=== PATIENT | male | born 1950 | race African-American/Black ===

== ENCOUNTER 2019-01-11 12:22 | Outpatient (RCR) | payer MEDICARE ==
[~2019-01-11 12:22] MED LIST: AMLODIPINE BESY10 MG PO; BISAC-EVAC10 MG PR; BISACODYL5 MG PO; CARVEDILOL3.125 MG PO; CATAPRES0.1 MG PO; FLEET ENEMA133 ML PR; FUROSEMIDE40 MG PO; GUAIFENESI100 MG/5 M PO; HUMALOG100 UNITS/ INJ; KLOR-CON M2020 MEQ PO; LISINOPRIL10 MG PO; MAALOX PO; MILK OF MA2400 MG/10 PO; PANTOPRAZOLE SO40 MG PO; POLYETHYLENE GL17 GM PO; TRAZODONE HCL50 MG PO; TYLENOL325 MG PO; ZINC OXIDE30 GM TOP; ZOFRAN ODT4 MG PO
[2019-01-11] MEDS ORDERED: LIDOCAINE/PRILOCAINE 2.5-2.5% KIT ONE (13:13)
[2019-01-11] MEDS ORDERED: MINERAL OIL/PETROLAT/GLYCERI 6OZ BTL ONE (13:13)
== END 2019-02-08 ==
LOC: WCC 12:22
PROVIDERS: ATTEND Family Medicine Adult Medicine
DX: E11.8 Type 2 diabetes mellitus with unspecified complications (principal); S81.801A Unspecified open wound, right lower leg, initial encounter; R60.9 Edema, unspecified; I87.2 Venous insufficiency (chronic) (peripheral); I70.201 Unspecified atherosclerosis of native arteries of extremities, right leg; G99.0 Autonomic neuropathy in diseases classified elsewhere; I10 Essential (primary) hypertension; E66.8 Other obesity; W45.8XXA Other foreign body or object entering through skin, initial encounter; Z89.612 Acquired absence of left leg above knee

== ENCOUNTER → 2019-01-18 | Outpatient (CLI) | payer MEDICARE | LOC: CARD 09:56 | PROVIDERS: ATTEND Family Medicine Adult Medicine | DX: I70.201 Unspecified atherosclerosis of native arteries of extremities, right leg (principal); I87.2 Venous insufficiency (chronic) (peripheral) | CPT/HCPCS: 93922; 93926; 93971 ==

== ENCOUNTER → 2019-09-20 | Outpatient (CLI) | payer MEDICARE ==
[~2019-09-20] MED LIST changes: +GADOBENATE DIMEGLUMINE 0 ML IV ONE
[2019-09-20 09:52] LABS: BLOOD UREA NITROGEN 17 mg/dL (7-26); BUN/CREATININE RATIO 16 (6-25); CREATININE, SERUM 1.09 mg/dL (0.72-1.25); EST GLOMERULAR FILTRATION RATE > 60 ML/MIN (60-)
== END ==
LOC: MRI 08:51
PROVIDERS: ATTEND Optometrist
DX: H47.291 Other optic atrophy, right eye (principal)
CPT/HCPCS: 36415; 82565; 84520

== ENCOUNTER 2021-06-03 11:11 | Inpatient (IN) | payer MEDICARE ==
[~2021-06-03] VITALS: Ht 185.4 cm; Wt 170.1 kg
[~2021-06-03 11:11] MED LIST changes: -GADOBENATE DIMEGLUMINE 0 ML IV ONE
[2021-06-03 12:37] LABS: ABG PCO2 59 mmHg (35-45); ABG PH 7.39 (7.35-7.45); ABG PO2 107 mmHg (80-105)
[2021-06-03 12:38] LABS: ABG HCO3 35 mmol/L (22-26); ABG TCO2 37
[2021-06-03 12:58] LABS: CLARITY,URINE CLEAR (CLEAR); COLOR,URINE YELLOW (YELLOW); LEUKOCYTE ESTERASE ,URINE NEGATIVE (NEGATIVE); NITRITE,URINE NEGATIVE (NEGATIVE); PROTEIN,URINE DIPSTICK 2+ (NEGATIVE)
[2021-06-03 12:59] LABS: KETONES,URINE 1+ (NEGATIVE); URINE UROBILINOGEN 0.2 mg/dL (0.2 - 1)
[2021-06-03 13:00] LABS: WBC,URINE (MAN) 0-5 /HPF (0-5)
[2021-06-03 13:01] LABS: MUCUS,URINE FEW (RARE)
[2021-06-03 13:12] LABS: EOSINOPHILS # (AUTO) 0.1 (0.0-0.4); EOSINOPHILS % 1.8 % (0.0-6.0); HEMATOCRIT 45.7 % (38.2-49.6); HEMOGLOBIN 13.4 g/dL (14.0-18.0); LYMPHOCYTES # (AUTO) 1.2 (1.0-3.2); LYMPHOCYTES % 24.6 % (18.0-39.1); MEAN CORPUSCULAR HEMOGLOBIN 24.5 pg (28-32); MEAN CORPUSCULAR HGB CONC 29.3 g/dL (31-35); MEAN CORPUSCULAR VOLUME 83.5 fL (81-99); MONOCYTES # (AUTO) 0.7 (0.2-0.8); MONOCYTES % 15.2 % (4.4-11.3); NEUTROPHILS # (AUTO) 2.8 (2.1-6.9); NEUTROPHILS % 57.8 % (38.7-80.0); PLATELET COUNT 141 x10e3/uL (140-360); RED BLOOD COUNT 5.47 x10e6/uL (4.3-5.7); RED CELL DISTRIBUTION WIDTH 19.8 % (11.7-14.4)
[2021-06-03 13:34] LABS: ALANINE AMINOTRANSFERASE 15 IU/L (0-55); ALBUMIN 2.9 g/dL (3.5-5.0); ALBUMIN/GLOBULIN RATIO 0.7 (0.8-2.0); ALKALINE PHOSPHATASE 63 IU/L (40-150); ANION GAP 11.3 mmol/L (8-16); BLOOD UREA NITROGEN 13 mg/dL (7-26); BUN/CREATININE RATIO 15 (6-25); CALCIUM 8.2 mg/dL (8.4-10.2); CARBON DIOXIDE 31 mmol/L (22-29); CHLORIDE 106 mmol/L (98-107); CREATINE KINASE 169 IU/L (30-200); CREATININE, SERUM 0.85 mg/dL (0.72-1.25); EST GLOMERULAR FILTRATION RATE 108 ML/MIN (60-); GLUCOSE 114 mg/dL (74-118); POTASSIUM 3.3 mmol/L (3.5-5.1); SODIUM 145 mmol/L (136-145)
[2021-06-03] MEDS ORDERED: POTASSIUM CHLORIDE 20MEQ/100ML 100 ML IV ONE (15:00)
[2021-06-03] MEDS ORDERED: FUROSEMIDE INJ 10 MG/ML 4 ML VIAL IV ONE (15:00)
[2021-06-03 16:52] LABS: ABG HCO3 36 mmol/L (22-26); ABG PCO2 63 mmHg (35-45); ABG PH 7.37 (7.35-7.45); ABG PO2 168 mmHg (80-105); ABG TCO2 38
[2021-06-03 16:54] LABS: ABG HCO3 36 mmol/L (22-26); ABG PCO2 63 mmHg (35-45); ABG PH 7.37 (7.35-7.45); ABG PO2 168 mmHg (80-105); ABG TCO2 38
[2021-06-03] MEDS ORDERED: DEXTROSE 50% SYRINGE 50 ML IV PRN (21:45)
[2021-06-03] MEDS ORDERED: POLYETHYLENE GLYCOL 3350 17 GM PACK PO SCH (21:45)
[2021-06-04] MEDS: CEFTRIAXONE 1 GM in SODIUM CHLORIDE 0.9% 50ML 50 ML IV SCH ×2 (00:53→21:00)
[2021-06-04] MEDS: HYDRALAZINE HCL 20 MG/ML VIAL IV PRN (03:22)
[2021-06-04 06:09] LABS: ABG HCO3 36 mmol/L (22-26); ABG PCO2 56 mmHg (35-45); ABG PO2 89 mmHg (80-105); ABG TCO2 32
[2021-06-04 06:11] LABS: ABG PH 7.41 (7.35-7.45)
[2021-06-04 07:09] LABS: EOSINOPHILS # (AUTO) 0.1 (0.0-0.4); EOSINOPHILS % 1.4 % (0.0-6.0); HEMATOCRIT 46.7 % (38.2-49.6); HEMOGLOBIN 14.1 g/dL (14.0-18.0); LYMPHOCYTES # (AUTO) 1.3 (1.0-3.2); LYMPHOCYTES % 16.3 % (18.0-39.1); MEAN CORPUSCULAR HEMOGLOBIN 24.7 pg (28-32); MEAN CORPUSCULAR HGB CONC 30.2 g/dL (31-35); MEAN CORPUSCULAR VOLUME 81.8 fL (81-99); MONOCYTES # (AUTO) 1.1 (0.2-0.8); MONOCYTES % 13.6 % (4.4-11.3); NEUTROPHILS # (AUTO) 5.3 (2.1-6.9); NEUTROPHILS % 68.3 % (38.7-80.0); PLATELET COUNT 166 x10e3/uL (140-360); RED BLOOD COUNT 5.71 x10e6/uL (4.3-5.7); RED CELL DISTRIBUTION WIDTH 19.9 % (11.7-14.4)
[2021-06-04 07:20] LABS: ALBUMIN 3.4 g/dL (3.5-5.0); ALBUMIN/GLOBULIN RATIO 0.8 (0.8-2.0); ANION GAP 16.1 mmol/L (8-16); CREATININE, SERUM 1.02 mg/dL (0.72-1.25); MAGNESIUM 1.7 MG/DL (1.3-2.1); POTASSIUM 3.1 mmol/L (3.5-5.1)
[2021-06-04] MEDS: INSULIN LISPRO 100 UNIT/1 ML 3ML VIAL SQ SCH ×4 (07:30→21:00)
[2021-06-04] MEDS ORDERED: POTASSIUM CHLORIDE 10MEQ EA PO NR ×2 (08:15→11:00)
[2021-06-04] MEDS ORDERED: MAGNESIUM OXIDE 400 MG TAB PO NR (08:15)
[2021-06-04] MEDS: PANTOPRAZOLE SOD 40 MG TABEC PO SCH (08:40)
[2021-06-04] MEDS: LISINOPRIL 10 MG TAB PO SCH (08:40)
[2021-06-04] MEDS: AMLODIPINE BESYLATE 10 MG TAB PO SCH (08:40)
[2021-06-04] MEDS: FUROSEMIDE INJ 10 MG/ML 4 ML VIAL IV SCH (08:40)
[2021-06-04] MEDS: CARVEDILOL 3.125 MG TAB PO SCH ×2 (08:40→17:00)
[2021-06-04] MEDS ORDERED: HALOPERIDOL LACTATE 5 MG/ML VIAL IV NR (10:15)
[2021-06-04 13:38] LABS: ABG HCO3 34 mmol/L (22-26); ABG PCO2 50 mmHg (35-45); ABG PH 7.44 (7.35-7.45); ABG PO2 154 mmHg (80-105); ABG TCO2 35
[2021-06-04 14:05] LABS: CHOL/HDL RATIO 4.4 (3.9-4.7); THYROID STIMULATING HORMONE 1.13 uIU/mL (0.350-4.940)
[2021-06-04] MEDS ORDERED: HALOPERIDOL LACTATE 5 MG/ML VIAL IM PRN (18:45)
[2021-06-04] MEDS ORDERED: HALOPERIDOL LACTATE 5 MG/ML VIAL IV STA (18:45)
[2021-06-04] MEDS: ENOXAPARIN SOD INJ 40 MG/0.4 ML SYR SC SCH (18:53)
[2021-06-04] MEDS ORDERED: OLANZAPINE 10 MG VIAL IM PRN (19:15)
[2021-06-05] MEDS: FUROSEMIDE INJ 10 MG/ML 4 ML VIAL IV SCH ×3 (00:31→20:01)
[2021-06-05] MEDS: INSULIN LISPRO 100 UNIT/1 ML 3ML VIAL SQ SCH ×4 (00:33→16:30)
[2021-06-05] MEDS: CARVEDILOL 3.125 MG TAB PO SCH ×2 (08:31→17:07)
[2021-06-05] MEDS: AMLODIPINE BESYLATE 10 MG TAB PO SCH (08:32)
[2021-06-05] MEDS: PANTOPRAZOLE SOD 40 MG TABEC PO SCH (08:32)
[2021-06-05] MEDS: LISINOPRIL 10 MG TAB PO SCH (08:32)
[2021-06-05] MEDS: ASPIRIN 81 MG ENTERIC COATED PO SCH (08:32)
[2021-06-05 08:37] LABS: EOSINOPHILS # (AUTO) 0.1 (0.0-0.4); EOSINOPHILS % 1.2 % (0.0-6.0); HEMOGLOBIN 13.4 g/dL (14.0-18.0); LYMPHOCYTES # (AUTO) 1.2 (1.0-3.2); LYMPHOCYTES % 20.9 % (18.0-39.1); MEAN CORPUSCULAR HEMOGLOBIN 24.5 pg (28-32); MEAN CORPUSCULAR HGB CONC 29.8 g/dL (31-35); MEAN CORPUSCULAR VOLUME 82.4 fL (81-99); MONOCYTES # (AUTO) 0.9 (0.2-0.8); MONOCYTES % 15.8 % (4.4-11.3); NEUTROPHILS # (AUTO) 3.6 (2.1-6.9); NEUTROPHILS % 61.9 % (38.7-80.0); PLATELET COUNT 158 x10e3/uL (140-360); RED BLOOD COUNT 5.46 x10e6/uL (4.3-5.7)
[2021-06-05 09:03] LABS: ALBUMIN 3.2 g/dL (3.5-5.0); CALCIUM 8.8 mg/dL (8.4-10.2); CREATININE, SERUM 0.97 mg/dL (0.72-1.25); MAGNESIUM 1.8 MG/DL (1.3-2.1)
[2021-06-05] MEDS ORDERED: POTASSIUM CHLORIDE 20 MEQ TAB CR PO ONE (12:30)
[2021-06-05 14:41] LABS: ANION GAP 18.2 mmol/L (8-16); CALCIUM 8.7 mg/dL (8.4-10.2); CREATININE, SERUM 0.95 mg/dL (0.72-1.25); POTASSIUM 3.2 mmol/L (3.5-5.1)
[2021-06-05] MEDS: ENOXAPARIN SOD INJ 40 MG/0.4 ML SYR SC SCH (17:07)
[2021-06-05 18:04] VITALS: BP 157/68
[2021-06-05 18:25] VITALS: BP 157/68
[2021-06-05 18:28] VITALS: BP 157/68
[2021-06-05] MEDS ORDERED: NEURONTIN100 MG PO (18:56)
[2021-06-05] MEDS ORDERED: DOCUSATE SODIU100 MG PO (18:56)
[2021-06-05] MEDS ORDERED: ISOSORBIDE MONO30 MG PO (18:56)
[2021-06-05] MEDS ORDERED: SENOKOT-S TABL1 EACH PO (18:56)
[2021-06-05] MEDS ORDERED: HYDRALAZINE HCL10 MG PO (18:56)
[2021-06-05] MEDS ORDERED: QUETIAPINE FUM100 MG PO ×2 (18:56)
[2021-06-05] MEDS ORDERED: PANTOPRAZOLE SO40 MG PO (18:56)
[2021-06-05] MEDS ORDERED: ALPRAZOLAM0.5 MG PO (18:56)
[2021-06-05] MEDS ORDERED: GLIPIZIDE5 MG PO (18:56)
[2021-06-05] MEDS ORDERED: DEPAKOTE500 MG PO (18:56)
[2021-06-05] MEDS ORDERED: METOPROLOL SUCC50 MG PO (18:56)
[2021-06-05] MEDS ORDERED: ASPIRIN81 MG PO (18:56)
[2021-06-05] MEDS ORDERED: DEXTROSE 50% SYRINGE 50 ML IV PRN (19:00)
[2021-06-05 20:00] VITALS: BP 160/70
[2021-06-05] MEDS: CEFTRIAXONE 1 GM in SODIUM CHLORIDE 0.9% 50ML 50 ML IV SCH (20:01)
[2021-06-05] MEDS ORDERED: POTASSIUM CHLORIDE 10MEQ EA PO ONE (20:45)
[2021-06-05 21:00] VITALS: BP 157/68
[2021-06-05] MEDS: INSULIN REGULAR, HUMAN 100 UNIT/1 ML SQ SCH (21:00)
[2021-06-06] VITALS (8 sets, daily range): BP systolic 132–167; BP diastolic 62–100
[2021-06-06 05:47] LABS: EOSINOPHILS # (AUTO) 0.1 (0.0-0.4); EOSINOPHILS % 2.1 % (0.0-6.0); HEMATOCRIT 43.5 % (38.2-49.6); HEMOGLOBIN 13.3 g/dL (14.0-18.0); LYMPHOCYTES # (AUTO) 1.3 (1.0-3.2); LYMPHOCYTES % 22.3 % (18.0-39.1); MEAN CORPUSCULAR HEMOGLOBIN 24.9 pg (28-32); MEAN CORPUSCULAR HGB CONC 30.6 g/dL (31-35); MEAN CORPUSCULAR VOLUME 81.5 fL (81-99); MONOCYTES # (AUTO) 0.9 (0.2-0.8); MONOCYTES % 15.8 % (4.4-11.3); NEUTROPHILS # (AUTO) 3.4 (2.1-6.9); NEUTROPHILS % 59.6 % (38.7-80.0); PLATELET COUNT 163 x10e3/uL (140-360); RED BLOOD COUNT 5.34 x10e6/uL (4.3-5.7); RED CELL DISTRIBUTION WIDTH 19.6 % (11.7-14.4)
[2021-06-06 06:35] LABS: ALBUMIN/GLOBULIN RATIO 0.8 (0.8-2.0); ANION GAP 16.2 mmol/L (8-16); CALCIUM 8.6 mg/dL (8.4-10.2); CREATININE, SERUM 1.05 mg/dL (0.72-1.25); MAGNESIUM 1.7 MG/DL (1.3-2.1); POTASSIUM 3.2 mmol/L (3.5-5.1)
[2021-06-06] MEDS: INSULIN REGULAR, HUMAN 100 UNIT/1 ML SQ SCH ×4 (07:15→20:58)
[2021-06-06] MEDS: CARVEDILOL 3.125 MG TAB PO SCH ×2 (10:10→16:01)
[2021-06-06] MEDS: PANTOPRAZOLE SOD 40 MG TABEC PO SCH (10:10)
[2021-06-06] MEDS: LISINOPRIL 10 MG TAB PO SCH (10:10)
[2021-06-06] MEDS: FUROSEMIDE INJ 10 MG/ML 4 ML VIAL IV SCH (10:10)
[2021-06-06] MEDS: AMLODIPINE BESYLATE 10 MG TAB PO SCH (10:10)
[2021-06-06] MEDS: ASPIRIN 81 MG ENTERIC COATED PO SCH (10:10)
[2021-06-06] MEDS ORDERED: MAGNESIUM OXIDE 400 MG TAB PO ONE (11:15)
[2021-06-06] MEDS: POTASSIUM CHLORIDE 10MEQ EA PO ONE ×2 (12:30→13:03)
[2021-06-06] MEDS ORDERED: POTASSIUM CHLORIDE 20 MEQ TAB CR PO SCH (14:00)
[2021-06-06] MEDS ORDERED: POTASSIUM CHLORIDE 10MEQ EA PO ONE (14:30)
[2021-06-06] MEDS: ENOXAPARIN SOD INJ 40 MG/0.4 ML SYR SC SCH (16:01)
[2021-06-06] MEDS: FUROSEMIDE 40 MG TAB PO SCH (17:12)
[2021-06-06] MEDS: CEFTRIAXONE 1 GM in SODIUM CHLORIDE 0.9% 50ML 50 ML IV SCH (20:56)
[2021-06-07] VITALS (8 sets, daily range): BP systolic 148–163; BP diastolic 73–87
[2021-06-07] MEDS: FUROSEMIDE 40 MG TAB PO SCH ×2 (06:06→16:31)
[2021-06-07 06:12] LABS: BASOPHILS % 0.2 % (0.0-1.0); EOSINOPHILS # (AUTO) 0.2 (0.0-0.4); EOSINOPHILS % 2.8 % (0.0-6.0); HEMATOCRIT 42.5 % (38.2-49.6); HEMOGLOBIN 12.6 g/dL (14.0-18.0); LYMPHOCYTES # (AUTO) 1.5 (1.0-3.2); LYMPHOCYTES % 25.9 % (18.0-39.1); MEAN CORPUSCULAR HEMOGLOBIN 24.6 pg (28-32); MEAN CORPUSCULAR HGB CONC 29.6 g/dL (31-35); MEAN CORPUSCULAR VOLUME 82.8 fL (81-99); MONOCYTES # (AUTO) 0.8 (0.2-0.8); MONOCYTES % 13.3 % (4.4-11.3); NEUTROPHILS # (AUTO) 3.3 (2.1-6.9); NEUTROPHILS % 57.6 % (38.7-80.0); PLATELET COUNT 138 x10e3/uL (140-360); RED BLOOD COUNT 5.13 x10e6/uL (4.3-5.7); RED CELL DISTRIBUTION WIDTH 19.7 % (11.7-14.4)
[2021-06-07 06:39] LABS: ANION GAP 12.5 mmol/L (8-16); CALCIUM 8.7 mg/dL (8.4-10.2); CREATININE, SERUM 1.2 mg/dL (0.72-1.25); MAGNESIUM 1.8 MG/DL (1.3-2.1); POTASSIUM 3.5 mmol/L (3.5-5.1)
[2021-06-07] MEDS: INSULIN REGULAR, HUMAN 100 UNIT/1 ML SQ SCH ×4 (07:30→21:26)
[2021-06-07] MEDS: ASPIRIN 81 MG ENTERIC COATED PO SCH (09:08)
[2021-06-07] MEDS: CARVEDILOL 3.125 MG TAB PO SCH ×2 (09:08→16:31)
[2021-06-07] MEDS: LISINOPRIL 10 MG TAB PO SCH (09:09)
[2021-06-07] MEDS: PANTOPRAZOLE SOD 40 MG TABEC PO SCH (09:09)
[2021-06-07] MEDS: AMLODIPINE BESYLATE 10 MG TAB PO SCH (09:09)
[2021-06-07] MEDS ORDERED: CEFEPIME 1 GM in SODIUM CHLORIDE 0.9% 50ML 50 ML IV SCH (15:00)
[2021-06-07] MEDS: ENOXAPARIN SOD INJ 40 MG/0.4 ML SYR SC SCH (16:31)
[2021-06-07] MEDS: CEFEPIME 1 GM in SODIUM CHLORIDE 0.9% 50ML 50 ML IV SCH (16:31)
[2021-06-08] VITALS (8 sets, daily range): BP systolic 109–178; BP diastolic 68–93
[2021-06-08] MEDS: CEFEPIME 1 GM in SODIUM CHLORIDE 0.9% 50ML 50 ML IV SCH ×2 (03:21→15:00)
[2021-06-08] MEDS ORDERED: QUETIAPINE FUMARATE 100 MG TAB PO PRN (03:45)
[2021-06-08] MEDS: FUROSEMIDE 40 MG TAB PO SCH ×2 (05:34→06:00)
[2021-06-08 10:36] LABS: BASOPHILS % 0.2 % (0.0-1.0); EOSINOPHILS # (AUTO) 0.1 (0.0-0.4); EOSINOPHILS % 2.7 % (0.0-6.0); HEMATOCRIT 41.6 % (38.2-49.6); HEMOGLOBIN 12.3 g/dL (14.0-18.0); LYMPHOCYTES # (AUTO) 1.3 (1.0-3.2); LYMPHOCYTES % 24.9 % (18.0-39.1); MEAN CORPUSCULAR HEMOGLOBIN 24.4 pg (28-32); MEAN CORPUSCULAR HGB CONC 29.6 g/dL (31-35); MEAN CORPUSCULAR VOLUME 82.5 fL (81-99); MONOCYTES # (AUTO) 0.7 (0.2-0.8); MONOCYTES % 13.1 % (4.4-11.3); NEUTROPHILS # (AUTO) 3.1 (2.1-6.9); NEUTROPHILS % 58.9 % (38.7-80.0); PLATELET COUNT 155 x10e3/uL (140-360); RED BLOOD COUNT 5.04 x10e6/uL (4.3-5.7); RED CELL DISTRIBUTION WIDTH 19.3 % (11.7-14.4)
[2021-06-08 10:53] LABS: ALBUMIN 3.1 g/dL (3.5-5.0); ALBUMIN/GLOBULIN RATIO 0.9 (0.8-2.0); ANION GAP 13.2 mmol/L (8-16); CALCIUM 8.6 mg/dL (8.4-10.2); CREATININE, SERUM 0.94 mg/dL (0.72-1.25); POTASSIUM 3.2 mmol/L (3.5-5.1)
[2021-06-08] MEDS ORDERED: ZIPRASIDONE 20 MG VIAL IM STA (11:22)
[2021-06-08] MEDS ORDERED: POTASSIUM CHLORIDE 10MEQ EA PO ONE ×2 (11:30→13:30)
[2021-06-08] MEDS ORDERED: FUROSEMIDE INJ 10 MG/ML 4 ML VIAL IV ONE ×2 (11:30→18:00)
[2021-06-08] MEDS ORDERED: ZIPRASIDONE 20 MG VIAL IM PRN (11:30)
[2021-06-08 12:25] LABS: ABG HCO3 31 mmol/L (22-26); ABG PCO2 47 mmHg (35-45); ABG PH 7.42 (7.35-7.45); ABG PO2 57 mmHg (80-105); ABG TCO2 33
[2021-06-08] MEDS: CIPROFLOXACIN 400 MG/D5W 200ML 200 ML IV SCH (13:00)
[2021-06-08] MEDS: ENOXAPARIN SOD INJ 40 MG/0.4 ML SYR SC SCH (17:00)
[2021-06-08] MEDS ORDERED: LORAZEPAM INJ 2 MG/ML VIAL IV ONE (18:00)
[2021-06-08] MEDS: INSULIN REGULAR, HUMAN 100 UNIT/1 ML SQ SCH ×2 (20:32→21:03)
[2021-06-08] MEDS: QUETIAPINE FUMARATE 100 MG TAB PO SCH (20:40)
[2021-06-09] VITALS (7 sets, daily range): BP systolic 152–169; BP diastolic 64–105
[2021-06-09] MEDS: CIPROFLOXACIN 400 MG/D5W 200ML 200 ML IV SCH ×2 (00:43→12:30)
[2021-06-09] MEDS: CEFEPIME 1 GM in SODIUM CHLORIDE 0.9% 50ML 50 ML IV SCH ×2 (04:06→14:47)
[2021-06-09] MEDS: FUROSEMIDE 40 MG TAB PO SCH ×3 (05:28→17:21)
[2021-06-09 06:51] LABS: BASOPHILS % 0.3 % (0.0-1.0); EOSINOPHILS # (AUTO) 0.2 (0.0-0.4); HEMATOCRIT 40.4 % (38.2-49.6); HEMOGLOBIN 12.3 g/dL (14.0-18.0); LYMPHOCYTES # (AUTO) 1.2 (1.0-3.2); LYMPHOCYTES % 19.6 % (18.0-39.1); MEAN CORPUSCULAR HEMOGLOBIN 24.9 pg (28-32); MEAN CORPUSCULAR HGB CONC 30.4 g/dL (31-35); MEAN CORPUSCULAR VOLUME 81.9 fL (81-99); MONOCYTES # (AUTO) 0.8 (0.2-0.8); MONOCYTES % 12.9 % (4.4-11.3); NEUTROPHILS # (AUTO) 3.8 (2.1-6.9); PLATELET COUNT 130 x10e3/uL (140-360); RED BLOOD COUNT 4.93 x10e6/uL (4.3-5.7); RED CELL DISTRIBUTION WIDTH 18.9 % (11.7-14.4)
[2021-06-09 07:24] LABS: ALBUMIN 2.9 g/dL (3.5-5.0); ALBUMIN/GLOBULIN RATIO 0.9 (0.8-2.0); ANION GAP 12.1 mmol/L (8-16); CALCIUM 8.3 mg/dL (8.4-10.2); CREATININE, SERUM 0.95 mg/dL (0.72-1.25); POTASSIUM 3.1 mmol/L (3.5-5.1)
[2021-06-09] MEDS: INSULIN REGULAR, HUMAN 100 UNIT/1 ML SQ SCH ×4 (08:30→21:54)
[2021-06-09] MEDS: CARVEDILOL 3.125 MG TAB PO SCH ×3 (09:40→16:43)
[2021-06-09] MEDS: ASPIRIN 81 MG ENTERIC COATED PO SCH (09:45)
[2021-06-09] MEDS: LISINOPRIL 10 MG TAB PO SCH (09:45)
[2021-06-09] MEDS: AMLODIPINE BESYLATE 10 MG TAB PO SCH (09:45)
[2021-06-09] MEDS: PANTOPRAZOLE SOD 40 MG TABEC PO SCH (09:45)
[2021-06-09] MEDS ORDERED: POTASSIUM CHLORIDE 10MEQ EA PO ONE ×3 (13:00→17:00)
[2021-06-09] MEDS ORDERED: FUROSEMIDE INJ 10 MG/ML 4 ML VIAL IV ONE (13:30)
[2021-06-09] MEDS: ENOXAPARIN SOD INJ 40 MG/0.4 ML SYR SC SCH (16:43)
[2021-06-09] MEDS: QUETIAPINE FUMARATE 100 MG TAB PO SCH (21:54)
[2021-06-10] VITALS (8 sets, daily range): BP systolic 111–152; BP diastolic 68–90
[2021-06-10] MEDS: CIPROFLOXACIN 400 MG/D5W 200ML 200 ML IV SCH ×2 (02:00→12:50)
[2021-06-10] MEDS: CEFEPIME 1 GM in SODIUM CHLORIDE 0.9% 50ML 50 ML IV SCH ×2 (03:57→15:59)
[2021-06-10] MEDS: LORAZEPAM INJ 2 MG/ML VIAL IV PRN (03:58)
[2021-06-10] MEDS: FUROSEMIDE 40 MG TAB PO SCH ×2 (06:00→18:12)
[2021-06-10 06:45] LABS: BASOPHILS % 0.2 % (0.0-1.0); EOSINOPHILS # (AUTO) 0.2 (0.0-0.4); EOSINOPHILS % 3.4 % (0.0-6.0); HEMATOCRIT 41.4 % (38.2-49.6); HEMOGLOBIN 12.4 g/dL (14.0-18.0); LYMPHOCYTES # (AUTO) 1.3 (1.0-3.2); LYMPHOCYTES % 21.2 % (18.0-39.1); MEAN CORPUSCULAR HEMOGLOBIN 24.8 pg (28-32); MEAN CORPUSCULAR VOLUME 82.6 fL (81-99); MONOCYTES # (AUTO) 0.9 (0.2-0.8); MONOCYTES % 14.9 % (4.4-11.3); NEUTROPHILS # (AUTO) 3.5 (2.1-6.9); PLATELET COUNT 142 x10e3/uL (140-360); RED BLOOD COUNT 5.01 x10e6/uL (4.3-5.7); RED CELL DISTRIBUTION WIDTH 19.1 % (11.7-14.4)
[2021-06-10 07:14] LABS: ALBUMIN/GLOBULIN RATIO 0.9 (0.8-2.0); ANION GAP 13.2 mmol/L (8-16); CALCIUM 8.4 mg/dL (8.4-10.2); CREATININE, SERUM 0.99 mg/dL (0.72-1.25); POTASSIUM 3.2 mmol/L (3.5-5.1)
[2021-06-10] MEDS: INSULIN REGULAR, HUMAN 100 UNIT/1 ML SQ SCH ×4 (08:30→20:51)
[2021-06-10] MEDS ORDERED: POTASSIUM CHLORIDE 10MEQ EA PO ONE ×3 (08:30→14:15)
[2021-06-10] MEDS: PANTOPRAZOLE SOD 40 MG TABEC PO SCH (09:17)
[2021-06-10] MEDS: ASPIRIN 81 MG ENTERIC COATED PO SCH (09:17)
[2021-06-10] MEDS: LISINOPRIL 10 MG TAB PO SCH (09:18)
[2021-06-10] MEDS: CARVEDILOL 3.125 MG TAB PO SCH ×2 (09:18→18:12)
[2021-06-10] MEDS: AMLODIPINE BESYLATE 10 MG TAB PO SCH (09:19)
[2021-06-10] MEDS: QUETIAPINE FUMARATE 100 MG TAB PO SCH ×2 (12:50→20:55)
[2021-06-10] MEDS: ENOXAPARIN SOD INJ 40 MG/0.4 ML SYR SC SCH (18:12)
[2021-06-10] MEDS ORDERED: FUROSEMIDE INJ 10 MG/ML 4 ML VIAL IV ONE (18:55)
[2021-06-10] MEDS ORDERED: METOLAZONE 5 MG TAB PO ONE (18:58)
[2021-06-11] VITALS (7 sets, daily range): BP systolic 135–164; BP diastolic 82–126
[2021-06-11] MEDS: CIPROFLOXACIN 400 MG/D5W 200ML 200 ML IV SCH ×2 (02:43→13:08)
[2021-06-11] MEDS: CEFEPIME 1 GM in SODIUM CHLORIDE 0.9% 50ML 50 ML IV SCH ×2 (03:00→14:32)
[2021-06-11] MEDS ORDERED: SODIUM CHLORIDE 0.9% 50ML 100 ML ONE (03:00)
[2021-06-11] MEDS ORDERED: CEFEPIME HCL 1 GM VIAL ONE (03:01)
[2021-06-11 05:02] LABS: BASOPHILS % 0.2 % (0.0-1.0); EOSINOPHILS # (AUTO) 0.2 (0.0-0.4); EOSINOPHILS % 4.4 % (0.0-6.0); HEMATOCRIT 42.4 % (38.2-49.6); HEMOGLOBIN 12.6 g/dL (14.0-18.0); LYMPHOCYTES # (AUTO) 1.2 (1.0-3.2); LYMPHOCYTES % 25.8 % (18.0-39.1); MEAN CORPUSCULAR HEMOGLOBIN 24.7 pg (28-32); MEAN CORPUSCULAR HGB CONC 29.7 g/dL (31-35); MONOCYTES # (AUTO) 0.7 (0.2-0.8); MONOCYTES % 15.1 % (4.4-11.3); NEUTROPHILS # (AUTO) 2.6 (2.1-6.9); NEUTROPHILS % 54.3 % (38.7-80.0); PLATELET COUNT 163 x10e3/uL (140-360); RED BLOOD COUNT 5.11 x10e6/uL (4.3-5.7); RED CELL DISTRIBUTION WIDTH 19.3 % (11.7-14.4)
[2021-06-11 05:22] LABS: ALBUMIN 2.9 g/dL (3.5-5.0); ALBUMIN/GLOBULIN RATIO 0.9 (0.8-2.0); CALCIUM 8.8 mg/dL (8.4-10.2); CREATININE, SERUM 1.33 mg/dL (0.72-1.25); MAGNESIUM 1.9 MG/DL (1.3-2.1)
[2021-06-11] MEDS: FUROSEMIDE 40 MG TAB PO SCH ×2 (06:02→16:56)
[2021-06-11] MEDS: INSULIN REGULAR, HUMAN 100 UNIT/1 ML SQ SCH ×4 (08:30→21:11)
[2021-06-11] MEDS: ASPIRIN 81 MG ENTERIC COATED PO SCH (08:46)
[2021-06-11] MEDS: CARVEDILOL 3.125 MG TAB PO SCH ×2 (08:47→16:56)
[2021-06-11] MEDS: AMLODIPINE BESYLATE 10 MG TAB PO SCH (08:47)
[2021-06-11] MEDS: PANTOPRAZOLE SOD 40 MG TABEC PO SCH (08:47)
[2021-06-11] MEDS: LISINOPRIL 10 MG TAB PO SCH (08:47)
[2021-06-11] MEDS: POTASSIUM CHLORIDE 20 MEQ TAB CR PO SCH (08:49)
[2021-06-11] MEDS ORDERED: POTASSIUM CHLORIDE 20 MEQ TAB CR PO STA (10:19)
[2021-06-11] MEDS ORDERED: MAGNESIUM OXIDE 400 MG TAB PO ONE (11:00)
[2021-06-11 14:15] LABS: ABG HCO3 34 mmol/L (22-26); ABG PCO2 50 mmHg (35-45); ABG PH 7.44 (7.35-7.45); ABG PO2 76 mmHg (80-105); ABG TCO2 36
[2021-06-11 16:14] LABS: ANION GAP 13.4 mmol/L (8-16); CALCIUM 8.8 mg/dL (8.4-10.2); CREATININE, SERUM 1.38 mg/dL (0.72-1.25); POTASSIUM 3.4 mmol/L (3.5-5.1)
[2021-06-11] MEDS ORDERED: POTASSIUM CHLORIDE 20 MEQ TAB CR PO NR (20:00)
[2021-06-11] MEDS: QUETIAPINE FUMARATE 100 MG TAB PO SCH (21:09)
[2021-06-12] VITALS (9 sets, daily range): BP systolic 128–146; BP diastolic 65–84
[2021-06-12] MEDS: CIPROFLOXACIN 400 MG/D5W 200ML 200 ML IV SCH ×2 (01:10→12:20)
[2021-06-12] MEDS: CEFEPIME 1 GM in SODIUM CHLORIDE 0.9% 50ML 50 ML IV SCH ×2 (02:16→14:23)
[2021-06-12] MEDS: ZIPRASIDONE 20 MG VIAL IM PRN ×2 (03:02→23:40)
[2021-06-12] MEDS: FUROSEMIDE 40 MG TAB PO SCH (05:50)
[2021-06-12 06:47] LABS: ALBUMIN 3.1 g/dL (3.5-5.0); ALBUMIN/GLOBULIN RATIO 0.8 (0.8-2.0); ANION GAP 13.3 mmol/L (8-16); CALCIUM 8.9 mg/dL (8.4-10.2); CREATININE, SERUM 1.31 mg/dL (0.72-1.25); MAGNESIUM 1.9 MG/DL (1.3-2.1); POTASSIUM 3.3 mmol/L (3.5-5.1)
[2021-06-12 08:08] LABS: CALCIUM IONIZED 1.2 mmol/L (1.09-1.30)
[2021-06-12] MEDS: ASPIRIN 81 MG ENTERIC COATED PO SCH (08:39)
[2021-06-12] MEDS: CARVEDILOL 3.125 MG TAB PO SCH ×2 (08:39→16:36)
[2021-06-12] MEDS: POTASSIUM CHLORIDE 20 MEQ TAB CR PO SCH (08:39)
[2021-06-12] MEDS: AMLODIPINE BESYLATE 10 MG TAB PO SCH (08:40)
[2021-06-12] MEDS: LISINOPRIL 10 MG TAB PO SCH (08:40)
[2021-06-12] MEDS: PANTOPRAZOLE SOD 40 MG TABEC PO SCH (08:40)
[2021-06-12] MEDS ORDERED: POTASSIUM CHLORIDE 10MEQ EA PO ONE (09:15)
[2021-06-12] MEDS: INSULIN REGULAR, HUMAN 100 UNIT/1 ML SQ SCH ×4 (09:15→20:55)
[2021-06-12 14:07] LABS: CALCIUM 9.2 mg/dL (8.4-10.2); CREATININE, SERUM 1.3 mg/dL (0.72-1.25)
[2021-06-12] MEDS ORDERED: POTASSIUM CHLORIDE 20 MEQ TAB CR PO ONE (15:45)
[2021-06-12] MEDS: ENOXAPARIN SOD INJ 40 MG/0.4 ML SYR SC SCH (16:36)
[2021-06-12] MEDS: QUETIAPINE FUMARATE 100 MG TAB PO SCH (20:55)
[2021-06-13] MEDS: CIPROFLOXACIN 400 MG/D5W 200ML 200 ML IV SCH ×3 (00:53→14:11)
[2021-06-13] MEDS: LORAZEPAM INJ 2 MG/ML VIAL IV PRN ×2 (01:30→19:29)
[2021-06-13] MEDS: CEFEPIME 1 GM in SODIUM CHLORIDE 0.9% 50ML 50 ML IV SCH ×2 (03:40→17:37)
[2021-06-13 07:06] LABS: ANION GAP 10.8 mmol/L (8-16); CALCIUM 8.8 mg/dL (8.4-10.2); CREATININE, SERUM 1.3 mg/dL (0.72-1.25); MAGNESIUM 1.8 MG/DL (1.3-2.1)
[2021-06-13 07:10] LABS: POTASSIUM 2.8 mmol/L (3.5-5.1)
[2021-06-13] MEDS: INSULIN REGULAR, HUMAN 100 UNIT/1 ML SQ SCH (07:30)
[2021-06-13 08:09] VITALS: BP 137/80
[2021-06-13] MEDS ORDERED: POTASSIUM CHLORIDE 20MEQ/100ML 200 ML IV ONE (09:00)
[2021-06-13] MEDS ORDERED: MAGNESIUM OXIDE 400 MG TAB PO ONE (09:30)
[2021-06-13 09:43] VITALS: BP 137/80
[2021-06-13] MEDS: ZIPRASIDONE 20 MG VIAL IM PRN (11:02)
[2021-06-13] MEDS ORDERED: LORAZEPAM INJ 2 MG/ML VIAL ONE (11:27)
[2021-06-13 16:12] VITALS: BP 150/73
[2021-06-13] MEDS ORDERED: MAGNESIUM SULFATE 2GM/50ML 50 ML IV ONE ×2 (16:15→20:30)
[2021-06-13] MEDS ORDERED: SPIRONOLACTONE 25 MG TAB PO ONE (16:30)
[2021-06-13] MEDS ORDERED: D5NS/KCL 20MEQ 1,000 ML IV ONE (16:30)
[2021-06-13] MEDS: ASPIRIN 81 MG ENTERIC COATED PO SCH (17:36)
[2021-06-13] MEDS: POTASSIUM CHLORIDE 20 MEQ TAB CR PO SCH (17:36)
[2021-06-13] MEDS: CARVEDILOL 3.125 MG TAB PO SCH ×2 (17:36→18:49)
[2021-06-13] MEDS: AMLODIPINE BESYLATE 10 MG TAB PO SCH (17:36)
[2021-06-13] MEDS: PANTOPRAZOLE SOD 40 MG TABEC PO SCH (17:37)
[2021-06-13] MEDS: LISINOPRIL 10 MG TAB PO SCH (17:37)
[2021-06-13] MEDS ORDERED: LORAZEPAM INJ 2 MG/ML VIAL IV ONE (18:15)
[2021-06-13 20:00] VITALS: BP 150/73
[2021-06-13 20:11] VITALS: BP 139/62
[2021-06-13] MEDS: QUETIAPINE FUMARATE 100 MG TAB PO SCH (21:00)
[2021-06-13 21:45] LABS: ANION GAP 12.1 mmol/L (8-16); CALCIUM 8.6 mg/dL (8.4-10.2); CREATININE, SERUM 1.2 mg/dL (0.72-1.25); POTASSIUM 3.1 mmol/L (3.5-5.1)
[2021-06-14] VITALS (8 sets, daily range): BP systolic 110–151; BP diastolic 63–95
[2021-06-14] MEDS: LORAZEPAM INJ 2 MG/ML VIAL IV PRN ×3 (03:24→20:09)
[2021-06-14] MEDS: CEFEPIME 1 GM in SODIUM CHLORIDE 0.9% 50ML 50 ML IV SCH ×2 (03:52→15:00)
[2021-06-14] MEDS: INSULIN REGULAR, HUMAN 100 UNIT/1 ML SQ SCH ×4 (07:30→21:00)
[2021-06-14] MEDS: CARVEDILOL 3.125 MG TAB PO SCH ×2 (08:00→16:17)
[2021-06-14] MEDS ORDERED: POTASSIUM CHLORIDE 10MEQ EA PO ONE (08:45)
[2021-06-14] MEDS: AMLODIPINE BESYLATE 10 MG TAB PO SCH (09:00)
[2021-06-14] MEDS: CIPROFLOXACIN 400 MG/D5W 200ML 200 ML IV SCH (09:00)
[2021-06-14] MEDS: ASPIRIN 81 MG ENTERIC COATED PO SCH (09:00)
[2021-06-14] MEDS: PANTOPRAZOLE SOD 40 MG TABEC PO SCH (09:00)
[2021-06-14] MEDS: POTASSIUM CHLORIDE 20 MEQ TAB CR PO SCH (09:00)
[2021-06-14] MEDS: LISINOPRIL 10 MG TAB PO SCH (09:00)
[2021-06-14 09:34] LABS: BASOPHILS % 0.2 % (0.0-1.0); EOSINOPHILS # (AUTO) 0.2 (0.0-0.4); EOSINOPHILS % 3.7 % (0.0-6.0); HEMATOCRIT 40.4 % (38.2-49.6); HEMOGLOBIN 12.2 g/dL (14.0-18.0); LYMPHOCYTES # (AUTO) 1.3 (1.0-3.2); LYMPHOCYTES % 25.8 % (18.0-39.1); MEAN CORPUSCULAR HEMOGLOBIN 24.4 pg (28-32); MEAN CORPUSCULAR HGB CONC 30.2 g/dL (31-35); MONOCYTES # (AUTO) 0.6 (0.2-0.8); MONOCYTES % 11.8 % (4.4-11.3); NEUTROPHILS # (AUTO) 2.8 (2.1-6.9); NEUTROPHILS % 58.1 % (38.7-80.0); PLATELET COUNT 144 x10e3/uL (140-360); RED BLOOD COUNT 4.99 x10e6/uL (4.3-5.7)
[2021-06-14] MEDS ORDERED: POTASSIUM CHLORIDE 20MEQ/100ML 200 ML IV ONE (11:00)
[2021-06-14] MEDS ORDERED: KCL 20MEQ/.9 SOD CHL 1,000 ML IV ONE (11:00)
[2021-06-14] MEDS ORDERED: AMILORIDE HCL 5 MG TAB PO ONE (11:30)
[2021-06-14 11:48] LABS: ALBUMIN 2.7 g/dL (3.5-5.0); ALBUMIN/GLOBULIN RATIO 0.8 (0.8-2.0); ANION GAP 12.3 mmol/L (8-16); CALCIUM 8.6 mg/dL (8.4-10.2); CREATININE, SERUM 1.31 mg/dL (0.72-1.25); POTASSIUM 3.3 mmol/L (3.5-5.1)
[2021-06-14] MEDS ORDERED: POTASSIUM CHLORIDE 20MEQ/100ML 100 ML IV ONE (13:00)
[2021-06-14] MEDS ORDERED: SODIUM CHLORIDE 0.9% 50ML 50 ML ONE (15:01)
[2021-06-14] MEDS ORDERED: IOPAMIDOL 370 MG/ML 200 ML INFUS..BTL INJ ONE (15:01)
[2021-06-14] MEDS: ENOXAPARIN SOD INJ 40 MG/0.4 ML SYR SC SCH (16:17)
[2021-06-14] MEDS: QUETIAPINE FUMARATE 100 MG TAB PO SCH (20:45)
[2021-06-14] MEDS: ZIPRASIDONE 20 MG VIAL IM PRN (23:45)
[2021-06-15] VITALS (8 sets, daily range): BP systolic 127–180; BP diastolic 61–83
[2021-06-15] MEDS: CEFEPIME 1 GM in SODIUM CHLORIDE 0.9% 50ML 50 ML IV SCH ×2 (03:00→16:03)
[2021-06-15] MEDS: HYDRALAZINE HCL 20 MG/ML VIAL IV PRN (05:30)
[2021-06-15 06:40] LABS: BASOPHILS % 0.2 % (0.0-1.0); EOSINOPHILS # (AUTO) 0.2 (0.0-0.4); EOSINOPHILS % 3.7 % (0.0-6.0); HEMATOCRIT 44.3 % (38.2-49.6); HEMOGLOBIN 13.6 g/dL (14.0-18.0); LYMPHOCYTES # (AUTO) 1.4 (1.0-3.2); LYMPHOCYTES % 24.6 % (18.0-39.1); MEAN CORPUSCULAR HEMOGLOBIN 24.9 pg (28-32); MEAN CORPUSCULAR HGB CONC 30.7 g/dL (31-35); MONOCYTES # (AUTO) 0.7 (0.2-0.8); MONOCYTES % 11.9 % (4.4-11.3); NEUTROPHILS # (AUTO) 3.3 (2.1-6.9); NEUTROPHILS % 59.4 % (38.7-80.0); PLATELET COUNT 132 x10e3/uL (140-360); RED BLOOD COUNT 5.47 x10e6/uL (4.3-5.7)
[2021-06-15 07:18] LABS: ALBUMIN/GLOBULIN RATIO 0.7 (0.8-2.0); ANION GAP 13.5 mmol/L (8-16); CALCIUM 9.1 mg/dL (8.4-10.2); CREATININE, SERUM 1.13 mg/dL (0.72-1.25); PHOSPHORUS 2.2 MG/DL (2.3-4.7); POTASSIUM 3.5 mmol/L (3.5-5.1)
[2021-06-15] MEDS: INSULIN REGULAR, HUMAN 100 UNIT/1 ML SQ SCH ×4 (07:30→20:43)
[2021-06-15] MEDS: CARVEDILOL 3.125 MG TAB PO SCH ×2 (08:00→16:10)
[2021-06-15] MEDS: CIPROFLOXACIN 400 MG/D5W 200ML 200 ML IV SCH (10:26)
[2021-06-15] MEDS ORDERED: POTASSIUM CHLORIDE 10MEQ EA PO NR (12:30)
[2021-06-15] MEDS: AMLODIPINE BESYLATE 10 MG TAB PO SCH (14:11)
[2021-06-15] MEDS: POTASSIUM CHLORIDE 20 MEQ TAB CR PO SCH (14:11)
[2021-06-15] MEDS: ASPIRIN 81 MG ENTERIC COATED PO SCH (14:11)
[2021-06-15] MEDS: PANTOPRAZOLE SOD 40 MG TABEC PO SCH (14:12)
[2021-06-15] MEDS: LISINOPRIL 10 MG TAB PO SCH (14:12)
[2021-06-15] MEDS ORDERED: KLOR-CON M2020 MEQ PO (14:31)
[2021-06-15] MEDS ORDERED: LOVENOX40 MG/0.4 SC (14:31)
[2021-06-15] MEDS ORDERED: LISINOPRIL10 MG PO (14:31)
[2021-06-15] MEDS ORDERED: NORVASC10 MG PO (14:31)
[2021-06-15] MEDS ORDERED: COREG3.125 MG PO (14:31)
[2021-06-15] MEDS ORDERED: GEODON20 M1 IM (14:31)
[2021-06-15] MEDS ORDERED: MIRALAX17 GM PO (14:31)
[2021-06-15] MEDS: ENOXAPARIN SOD INJ 40 MG/0.4 ML SYR SC SCH (17:09)
[2021-06-15] MEDS: LORAZEPAM INJ 2 MG/ML VIAL IV PRN (20:25)
[2021-06-15] MEDS: QUETIAPINE FUMARATE 100 MG TAB PO SCH (20:43)
[2021-06-16] MEDS: CEFEPIME 1 GM in SODIUM CHLORIDE 0.9% 50ML 50 ML IV SCH (02:14)
[2021-06-16] MEDS ORDERED: SODIUM CHLORIDE 0.9% 250ML 250 ML ONE (03:15)
[2021-06-16 03:34] VITALS: BP 139/79
[2021-06-16 03:53] LABS: ANION GAP 14.4 mmol/L (8-16); CALCIUM 9.1 mg/dL (8.4-10.2); CREATININE, SERUM 1.21 mg/dL (0.72-1.25); MAGNESIUM 1.9 MG/DL (1.3-2.1); POTASSIUM 3.4 mmol/L (3.5-5.1)
[2021-06-16] MEDS: LORAZEPAM INJ 2 MG/ML VIAL IV PRN (04:28)
[2021-06-16] MEDS: INSULIN REGULAR, HUMAN 100 UNIT/1 ML SQ SCH (07:30)
[2021-06-16] MEDS: CARVEDILOL 3.125 MG TAB PO SCH (07:35)
[2021-06-16 08:00] VITALS: BP 174/79
[2021-06-16] MEDS: CIPROFLOXACIN 400 MG/D5W 200ML 200 ML IV SCH (09:07)
[2021-06-16 09:11] VITALS: BP 174/79
[2021-06-16 11:14] VITALS: BP 154/90
[2021-06-16] MEDS: ASPIRIN 81 MG ENTERIC COATED PO SCH (11:44)
[2021-06-16] MEDS: POTASSIUM CHLORIDE 20 MEQ TAB CR PO SCH (11:44)
[2021-06-16] MEDS: PANTOPRAZOLE SOD 40 MG TABEC PO SCH (11:45)
[2021-06-16] MEDS: AMLODIPINE BESYLATE 10 MG TAB PO SCH (11:45)
[2021-06-17] MEDS ORDERED: LISINOPRIL 10 MG TAB PO SCH (09:00)
== END 2021-06-16 12:45 | DRG 871 ==
LOC: ER 11:18 → ERHOLD 14:54 → IMCU 06-05 17:37 → MED/SURG2 06-06 13:49
PROVIDERS: ADMIT Internal Medicine; ATTEND Internal Medicine
PROC: 02HV33Z Insertion of Infusion Device into Superior Vena Cava, Percutaneous Approach (ICD-10-PCS; principal; 2021-06-03)
DX: A41.52 Sepsis due to Pseudomonas (principal); I50.31 Acute diastolic (congestive) heart failure; G93.41 Metabolic encephalopathy; J69.0 Pneumonitis due to inhalation of food and vomit; J96.22 Acute and chronic respiratory failure with hypercapnia; J96.21 Acute and chronic respiratory failure with hypoxia; E66.2 Morbid (severe) obesity with alveolar hypoventilation; Z68.42 Body mass index [BMI] 45.0-49.9, adult; I13.0 Hypertensive heart and chronic kidney disease with heart failure and stage 1 through stage 4 chronic kidney disease, or unspecified chronic kidney disease; N30.00 Acute cystitis without hematuria; Z86.73 Personal history of transient ischemic attack (TIA), and cerebral infarction without residual deficits; F32.9 Major depressive disorder, single episode, unspecified; K21.9 Gastro-esophageal reflux disease without esophagitis; E78.5 Hyperlipidemia, unspecified; Z89.612 Acquired absence of left leg above knee; E87.6 Hypokalemia; E11.22 Type 2 diabetes mellitus with diabetic chronic kidney disease; N18.30 Chronic kidney disease, stage 3 unspecified; E83.42 Hypomagnesemia; E86.0 Dehydration; E11.51 Type 2 diabetes mellitus with diabetic peripheral angiopathy without gangrene; Z20.822 Contact with and (suspected) exposure to COVID-19; B96.5 Pseudomonas (aeruginosa) (mallei) (pseudomallei) as the cause of diseases classified elsewhere; F20.9 Schizophrenia, unspecified
CPT/HCPCS: 36415; 36569; 36600; 51700; 70450; 71045; 74176; 74470; 76770; 80048; 80053; 80061; 81001; 82088; 82140; 82550; 82553; 82607; 82746; 82805; 82948; 83605; 83735; 83880; 84100; 84244; 84443; 84484; 85025; 86592; 87040; 87086; 87186; 93005; 93306; 94660; 97139; 99251; 99285; J0360; J0456; J0692; J0696; J1630; J1650; J1817; J1940; J2060; J3475; J3480; J3486; J7050; Q9967; U0002